=== PATIENT | male | born 1985 | race Caucasian/White ===

== ENCOUNTER 2018-01-13 08:58 | Emergency (ER) | payer OTHER ==
[2018-01-13 09:06] VITALS: BP 125/75; PULSE 89; TEMP 98.9; BMI 36.1
[2018-01-13] MEDS ORDERED: KETOROLAC TROMETHAMINE 60 MG/2 ML VIAL ONE (09:27)
[2018-01-13] MEDS ORDERED: KETOROLAC TROMETHAMINE 60 MG/2 ML VIAL IM ONE (09:28)
--- NOTE | 2018-01-13 10:16 | PDOC ---
History of Present Illness - General Chief Complaint: Injury Stated Complaint: SPRAINED LT ANKEL/WC Time Seen by Provider: 01/13/18 09:25 History Source: Patient Exam Limitations: No Limitations (L ankle pain s/p mistep at work today) Past History - Travel Traveled outside of the country in the last 30 days: No Close contact w/someone who was outside of country & ill: No - Past Medical History Allergies/Adverse Reactions: Allergies Allergy/AdvReac Type Severity Reaction Status Date / Time No Known Allergies Allergy Verified 01/13/18 09:05 Home Medications: Ambulatory Orders Naproxen 375 mg PO BID 10 Days #30 tablet 01/13/18 Asthma: Yes COPD: No - Suicide/Smoking/Psychosocial Hx Smoking History: Never smoked Review of Systems - Review of Systems Constitutional: No: Chills, Fever Musculoskeletal: Yes: Joint Pain, Joint Swelling, Other (L ankle pain). No: Back Pain *Physical Exam - Vital Signs Last Vital Signs Temp Pulse Resp BP Pulse Ox 98.9 F 89 18 125/75 99 01/13/18 09:03 01/13/18 09:03 01/13/18 09:03 01/13/18 09:03 01/13/18 09:03 - Physical Exam General Appearance: Yes: Nourished Extremity: positive: Normal Capillary Refill, Swelling, Other (L ankle: swelling noted in lateral malleous, tenderness, limited ROM d/t pain, distal pulse intact, liming gait). 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 NML intact, Fully Oriented, Alert ED Treatment Course - RADIOLOGY Radiology Studies Ordered: Category Date Time Status ANKLE-LEFT [RAD] Stat Radiology 01/13/18 09:27 Completed - Medications Given in the ED: ED Medications Discontinued Medications Generic Name Dose Route Start Last Admin Trade Name Freq PRN Reason Stop Dose Admin Ketorolac Tromethamine 60 mg 01/13/18 09:28 01/13/18 09:35 Toradol Injection - IM 01/13/18 09:29 60 mg ONCE ONE Administration Medical Decision Making - Medical Decision Making 32y/o M with L ankle sprain after a mistep at work 1hr [employer], denies lOC or head trauma, pt reports he heard a " pop" exam consistent with lateral malleous swelling, limping gait, distal pulse intact, limited ROM of ankle d/t pain xray, pain control dispo pending 01/13/18 10:15 01/13/18 10:22 xray neg for fx old distal fibular fx--pt confirm cassie wrap, nsaids, RICE instructions f/u PCP or ortho in 2wks if pain persist for MRI imaging *DC/Admit/Observation/Transfer Diagnosis at time of Disposition: Left ankle sprain Qualifiers: Encounter type: initial encounter Involved ligament of ankle: unspecified ligament Qualified Code(s): S93.402A - Sprain of unspecified ligament of left ankle, initial encounter - Discharge Dispostion Disposition: HOME Decision to Admit order: No - Prescriptions Prescriptions: Naproxen 375 mg PO BID 10 Days #30 tablet - Referrals Referrals: Jennifer Seadrift Cesar [Provider Group] - Patient Instructions Printed Discharge Instructions: DI for Ankle Sprain Additional Instructions: Your xray was negative for fracture today please ice ankle, keep it elevated and take medications as prescribed followup with your primary care doctor or orthopedic in 2 weeks if pain persist for revaluation - Post Discharge Activity Forms/Work/School Notes: Back to Work
== END 2018-01-13 10:33 | disposition home or self-care (01) ==
LOC: JERFT 08:58
DX: S93.402A Sprain of unspecified ligament of left ankle, initial encounter (principal); W01.0XXA Fall on same level from slipping, tripping and stumbling without subsequent striking against object, initial encounter; Y93.89 Activity, other specified; Y92.214 College as the place of occurrence of the external cause; Y99.0 Civilian activity done for income or pay
CPT/HCPCS: 73610-TC-LT-FY; 99281-25